=== PATIENT | female | born 1980 | race African-American/Black ===

== ENCOUNTER 2019-09-16 18:23 | Emergency (ER) | payer MEDICAID ==
[~2019-09-16] VITALS: Ht 170.2 cm; Wt 80.0 kg
[~2019-09-16 18:23] MED LIST: ALBU05; AMOX1TAB16 PO; BECL8.7A5; EFAV1TAB3; TRAM50TA3 PO; [UNRECOGNIZED DRUG - CODE] EACH EAR
[2019-09-16] MEDS ORDERED: ALBUTEROL (0.083%) 2.5MG/3ML NEB HHN STA (18:43)
[2019-09-16] MEDS ORDERED: IPRATROPIUM BROMIDE (0.02%) 0.5MG/2.5ML NEB HHN STA (18:43)
[2019-09-16] MEDS ORDERED: PREDNISONE 20MG TABLET PO ONE (18:45)
[2019-09-16] MEDS ORDERED: DIPHENHYDRAMINE 25MG CAPSULE PO ONE (18:45)
[2019-09-16 20:49] VITALS: BP 122/76
== END 2019-09-16 21:00 | disposition home or self-care (01) ==
LOC: ER 18:23
DX: J45.901 Unspecified asthma with (acute) exacerbation (principal); Z88.6 Allergy status to analgesic agent; Z88.0 Allergy status to penicillin
CPT/HCPCS: 71045; 94644; 99285; J7512; Q0163; Z7610

== ENCOUNTER 2021-05-26 13:49 | Emergency (ER) | payer MEDICAID ==
[~2021-05-26] VITALS: Ht 167.6 cm; Wt 81.0 kg
[2021-05-26 13:57] VITALS: BP 79/73
== END 2021-05-26 18:03 | disposition left against medical advice (07) ==
LOC: ER 13:49
DX: R06.02 Shortness of breath (principal); J45.909 Unspecified asthma, uncomplicated; Z88.6 Allergy status to analgesic agent; Z88.0 Allergy status to penicillin
CPT/HCPCS: 71045; 81025; 93005

== ENCOUNTER 2021-07-14 21:39 | Emergency (ER) | payer MEDICAID ==
[~2021-07-14] VITALS: Ht 160 cm; Wt 60.0 kg
[2021-07-14 21:42] VITALS: BP 149/80
[2021-07-14] MEDS ORDERED: ALBUTEROL (0.083%) 2.5MG/3ML NEB HHN STA (22:36)
[2021-07-14] MEDS ORDERED: PREDNISONE 20MG TABLET PO STA (22:36)
[2021-07-14] MEDS ORDERED: IPRATROPIUM BROMIDE (0.02%) 0.5MG/2.5ML NEB HHN STA (22:36)
== END 2021-07-14 22:47 | disposition left against medical advice (07) ==
LOC: ER 21:39
DX: J45.909 Unspecified asthma, uncomplicated (principal); R06.02 Shortness of breath; Z88.0 Allergy status to penicillin; Z88.6 Allergy status to analgesic agent; Z98.890 Other specified postprocedural states
CPT/HCPCS: 93005; 99283

== ENCOUNTER 2023-11-15 23:53 | Emergency (ER) | payer MEDICAID ==
[~2023-11-15] VITALS: Ht 167.6 cm; Wt 75.0 kg
[2023-11-15 23:58] VITALS: TEMP 98
[2023-11-16] MEDS ORDERED: METHYLPREDNISOLONE SOD SUCC 125MG/2ML (ACT-O-VIAL) IV STA (00:07)
[2023-11-16 00:38] VITALS: PULSE 49; RESP 18; O2SAT 94
[2023-11-16] MEDS: IPRATROPIUM BROMIDE (0.02%) 0.5MG/2.5ML NEB HHN STA (00:38)
[2023-11-16] MEDS: ALBUTEROL (0.083%) 2.5MG/3ML NEB HHN STA (00:38)
[2023-11-16] MEDS: MAGNESIUM 2 G PREMIX 50 ML IV STA (01:10)
[2023-11-16] MEDS: METHYLPREDNISOLONE SOD SUCC 125MG/2ML (ACT-O-VIAL) IV NR (01:11)
[2023-11-16] MEDS ORDERED: BECL10.6 INH (04:07)
[2023-11-16] MEDS ORDERED: PRED10TA MT (04:07)
[2023-11-16 04:34] VITALS: BP 106/61; PULSE 96; RESP 16
== END 2023-11-16 04:40 | disposition home or self-care (01) ==
LOC: ER 23:55
DX: J45.901 Unspecified asthma with (acute) exacerbation (principal); Z88.6 Allergy status to analgesic agent; Z88.0 Allergy status to penicillin; Z88.8 Allergy status to other drugs, medicaments and biological substances
CPT/HCPCS: 99285; 94644; 96365; 96366; 96375; J3475; J2919; Z7610 ×3

== ENCOUNTER 2024-03-19 20:06 | Emergency (ER) | payer MEDICAID ==
[~2024-03-19] VITALS: Ht 170.2 cm; Wt 78.0 kg
[~2024-03-19 20:06] MED LIST changes: +BECL10.6 INH; +PRED10TA MT
[2024-03-19] MEDS: DEXAMETHASONE 4MG/ML 1ML VIAL IM ONE (21:34)
[2024-03-19 21:45] VITALS: PULSE 85; RESP 19; O2SAT 97
[2024-03-19] MEDS: ALBUTEROL (0.083%) 2.5MG/3ML NEB HHN STA (21:58)
[2024-03-19] MEDS: IPRATROPIUM BROMIDE (0.02%) 0.5MG/2.5ML NEB HHN STA (21:58)
[2024-03-19] MEDS ORDERED: ALBU90AE INH (22:56)
[2024-03-19] MEDS ORDERED: METH4TAB95 MT (22:56)
[2024-03-19] MEDS ORDERED: DOXY100C5 MT (22:56)
[2024-03-19 23:26] VITALS: BP 116/65; PULSE 94; RESP 18; TEMP 36.83628; O2SAT 100
== END 2024-03-19 23:30 | disposition home or self-care (01) ==
LOC: ER 20:06
DX: J45.901 Unspecified asthma with (acute) exacerbation (principal); F41.9 Anxiety disorder, unspecified; Z88.0 Allergy status to penicillin; Z88.6 Allergy status to analgesic agent; Z79.899 Other long term (current) drug therapy
CPT/HCPCS: 71045; 94640; 96372; 99283; J1100; Z7610 ×3